=== PATIENT | female | born 1960 | race Caucasian/White ===

== ENCOUNTER 2022-10-31 08:57 | Inpatient (IN) | payer BC ==
[~2022-10-31] VITALS: Ht 167.6 cm; Wt 57.6 kg
[2022-10-31 09:28] VITALS: BP_SYST 193; PULSE 82; RESP 20; TEMP 98.1; O2SAT 98
[2022-10-31 09:47] LABS: BASOPHILS # (AUTO) 0.1 K/uL (0.0-0.2); BASOPHILS % (AUTO) 1.1 % (0.0-2.0); EOSINOPHILS # (AUTO) 0.3 K/uL (0.0-0.4); EOSINOPHILS % (AUTO) 5.6 % (0.0-4.0); HEMATOCRIT 32.3 % (36-48); HEMOGLOBIN 10.6 g/dL (12.0-16.0); LYMPHOCYTES # (AUTO) 0.8 K/uL (1.0-5.5); LYMPHOCYTES % (AUTO) 17.4 % (20.5-51.5); MEAN CORPUSCULAR HEMOGLOBIN 31 pg (27-31); MEAN CORPUSCULAR HGB CONC 33 % (32-36); MEAN CORPUSCULAR VOLUME 96 fL (79.0-98.0); MONOCYTES # (AUTO) 0.2 K/uL (0.0-1.0); NEUTROPHILS # (AUTO) 3.3 K/uL (1.8-7.7); NEUTROPHILS % (AUTO) 71.9 % (40.0-70.0); PLATELET COUNT (AUTO) 122 K/uL (130-430); RED BLOOD CELL COUNT(AUTO) 3.37 MIL/uL (4.2-6.2); RED CELL DISTRIBUTION WIDTH 13.9 % (9.0-15.0); WHITE BLOOD COUNT (AUTO) 4.6 K/uL (4.8-10.8)
[2022-10-31 10:05] LABS: ANION GAP 9 (5-15); CALCIUM 8.8 mg/dL (8.4-11.0); CARBON DIOXIDE 28 mmol/L (23-29); CHLORIDE 102 mmol/L (98-107); CREATININE 6.73 mg/dL (0.55-1.30); GFR AFRICAN AMERICAN 8 mL/min (>90); GLUCOSE 95 mg/dL (74-106); SODIUM SERUM 139 mmol/L (136-145); UREA NITROGEN, BLOOD 47 mg/dL (8-21)
[2022-10-31 10:06] LABS: GFR NON AFRICAN-AMERICAN 7 mL/min (>90)
[2022-10-31 10:12] LABS: ALANINE AMINOTRANSFERASE 23 U/L (12-78); ALBUMIN 3.4 g/dL (3.4-4.8); ASPARTATE AMINOTRANSFERASE 23 U/L (10-37); TOTAL BILIRUBIN 0.5 mg/dL (0.0-1.0); TOTAL PROTEIN, SERUM 6.5 g/dL (6.4-8.3)
[2022-10-31] MEDS ORDERED: FUROSEMIDE 40 MG/4 ML VIAL IVP ONE (10:45)
[2022-10-31] MEDS ORDERED: NITROGLYCERIN 1 INCH (GM) OINT. TP ONE (10:45)
[2022-10-31 14:19] VITALS: BP_SYST 158; PULSE 78; RESP 18; TEMP 97.4
[2022-10-31] MEDS ORDERED: ACETAMINOPHEN 650 MG SUPP.RECT RC PRN (14:45)
[2022-10-31] MEDS ORDERED: ONDANSETRON HCL 4 MG/2 ML VIAL IVP PRN (14:45)
[2022-10-31] MEDS ORDERED: METOCLOPRAMIDE HCL 10 MG/2 ML VIAL IVP PRN (14:45)
[2022-10-31] MEDS ORDERED: cloNIDine HCL 0.1 MG TABLET PO PRN (15:00)
[2022-10-31 15:01] VITALS: O2SAT 94
[2022-10-31] MEDS ORDERED: TEMAZEPAM 15 MG CAPSULE PO PRN (15:30)
[2022-10-31] MEDS ORDERED: traMADol HCL HCL 50 MG TABLET (ULTRAM) PO PRN (15:30)
[2022-10-31 16:45] VITALS: BP_SYST 154; PULSE 83; RESP 18; TEMP 97.8; O2SAT 94
[2022-10-31] MEDS: ACETAMINOPHEN 325 MG TABLET PO PRN (19:05)
[2022-10-31 20:00] VITALS: BP_SYST 161; PULSE 85; RESP 20; TEMP 98; O2SAT 93
[2022-11-01] MEDS: ACETAMINOPHEN 325 MG TABLET PO PRN (00:22)
[2022-11-01 00:34] VITALS: BP_SYST 147; PULSE 80; RESP 14; TEMP 97; O2SAT 95
[2022-11-01 07:19] LABS: BASOPHILS # (AUTO) 0.1 K/uL (0.0-0.2); BASOPHILS % (AUTO) 0.9 % (0.0-2.0); EOSINOPHILS # (AUTO) 0.2 K/uL (0.0-0.4); HEMATOCRIT 28.4 % (36-48); HEMOGLOBIN 9.4 g/dL (12.0-16.0); LYMPHOCYTES # (AUTO) 0.9 K/uL (1.0-5.5); LYMPHOCYTES % (AUTO) 14.7 % (20.5-51.5); MEAN CORPUSCULAR HEMOGLOBIN 32 pg (27-31); MEAN CORPUSCULAR HGB CONC 33 % (32-36); MEAN CORPUSCULAR VOLUME 96 fL (79.0-98.0); MONOCYTES # (AUTO) 0.2 K/uL (0.0-1.0); MONOCYTES % (AUTO) 4.2 % (1.7-9.3); NEUTROPHILS # (AUTO) 4.5 K/uL (1.8-7.7); NEUTROPHILS % (AUTO) 76.2 % (40.0-70.0); PLATELET COUNT (AUTO) 125 K/uL (130-430); RED BLOOD CELL COUNT(AUTO) 2.97 MIL/uL (4.2-6.2); RED CELL DISTRIBUTION WIDTH 13.5 % (9.0-15.0)
[2022-11-01 08:00] VITALS: BP_SYST 155; PULSE 90; RESP 18; TEMP 97.4; O2SAT 95
[2022-11-01 08:09] LABS: ALBUMIN 3.2 g/dL (3.4-4.8); CALCIUM 8.2 mg/dL (8.4-11.0); PHOSPHORUS 4.6 mg/dL (2.7-4.5); POTASSIUM 4.8 mmol/L (3.5-5.1); TOTAL BILIRUBIN 0.4 mg/dL (0.0-1.0); TOTAL PROTEIN, SERUM 5.8 g/dL (6.4-8.3)
[2022-11-01 08:15] LABS: CREATININE 9.23 mg/dL (0.55-1.30)
[2022-11-01 09:56] VITALS: O2SAT 95
[2022-11-01 12:15] VITALS: BP_SYST 157; PULSE 98; RESP 18; TEMP 97.2; O2SAT 95
[2022-11-01] MEDS ORDERED: CARVEDILOL 6.25 MG TABLET (COREG) PO ONE (13:30)
[2022-11-01] MEDS ORDERED: ASPIRIN 81 MG TABLET(ECOTRIN) PO ONE (13:30)
[2022-11-01] MEDS ORDERED: ATORVASTATIN 10 MG TABLET PO ONE (13:30)
[2022-11-01 16:28] VITALS: BP_SYST 134; PULSE 86; RESP 18; TEMP 98.4; O2SAT 95
[2022-11-01 20:00] VITALS: BP_SYST 135; PULSE 80; RESP 16; TEMP 97.9; O2SAT 97
[2022-11-01] MEDS: CARVEDILOL 6.25 MG TABLET (COREG) PO SCH (21:26)
[2022-11-02] VITALS: BP_SYST 130; PULSE 76; RESP 15; TEMP 97.6; O2SAT 97
[2022-11-02 01:38] VITALS: O2SAT 96
[2022-11-02 05:18] LABS: BASOPHILS # (AUTO) 0.1 K/uL (0.0-0.2); BASOPHILS % (AUTO) 1.1 % (0.0-2.0); EOSINOPHILS # (AUTO) 0.3 K/uL (0.0-0.4); EOSINOPHILS % (AUTO) 7.3 % (0.0-4.0); HEMATOCRIT 27.6 % (36-48); HEMOGLOBIN 9.2 g/dL (12.0-16.0); LYMPHOCYTES # (AUTO) 1.5 K/uL (1.0-5.5); LYMPHOCYTES % (AUTO) 32.7 % (20.5-51.5); MEAN CORPUSCULAR HEMOGLOBIN 32 pg (27-31); MEAN CORPUSCULAR HGB CONC 33 % (32-36); MEAN CORPUSCULAR VOLUME 95 fL (79.0-98.0); MONOCYTES # (AUTO) 0.3 K/uL (0.0-1.0); MONOCYTES % (AUTO) 6.2 % (1.7-9.3); NEUTROPHILS # (AUTO) 2.4 K/uL (1.8-7.7); NEUTROPHILS % (AUTO) 52.7 % (40.0-70.0); PLATELET COUNT (AUTO) 123 K/uL (130-430); RED BLOOD CELL COUNT(AUTO) 2.89 MIL/uL (4.2-6.2); RED CELL DISTRIBUTION WIDTH 13.5 % (9.0-15.0); WHITE BLOOD COUNT (AUTO) 4.6 K/uL (4.8-10.8)
[2022-11-02 05:52] LABS: ALBUMIN 2.9 g/dL (3.4-4.8); POTASSIUM 5.3 mmol/L (3.5-5.1); TOTAL BILIRUBIN 0.4 mg/dL (0.0-1.0); TOTAL PROTEIN, SERUM 5.6 g/dL (6.4-8.3)
[2022-11-02 06:18] LABS: CREATININE 11.68 mg/dL (0.55-1.30)
[2022-11-02 07:54] VITALS: BP_SYST 170; PULSE 76; RESP 18; TEMP 96.3; O2SAT 98
[2022-11-02] MEDS ORDERED: ASPIRIN 81 MG TABLET(ECOTRIN) PO SCH (09:00)
[2022-11-02] MEDS ORDERED: ATORVASTATIN 10 MG TABLET PO SCH (09:00)
[2022-11-02] MEDS: CARVEDILOL 6.25 MG TABLET (COREG) PO SCH (09:46)
[2022-11-02 10:08] VITALS: BP_SYST 166; PULSE 83; RESP 18; TEMP 98.3; O2SAT 96
[2022-11-02] MEDS ORDERED: FURO-149 PO (10:24)
[2022-11-02] MEDS ORDERED: SOD250TA2 PO (10:26)
[2022-11-02] MEDS ORDERED: CLON0.1T PO (11:47)
[2022-11-02] MEDS ORDERED: LIP10 PO (11:47)
[2022-11-02] MEDS ORDERED: COR6.25 PO (11:47)
[2022-11-02] MEDS ORDERED: HEPARIN SODIUM,PORCINE 5,000 UNITS/ML VIAL ONE (18:19)
== END 2022-11-02 19:40 | disposition home or self-care (01) | DRG 291 ==
LOC: SED 08:57 → STU 10:27
PROVIDERS: ADMIT Internal Medicine; ATTEND Internal Medicine
PROC: 5A1D70Z Performance of Urinary Filtration, Intermittent, Less than 6 Hours Per Day (ICD-10-PCS; principal; 2022-10-31)
PROC: 5A1D70Z Performance of Urinary Filtration, Intermittent, Less than 6 Hours Per Day (ICD-10-PCS; 2022-11-02)
DX: I13.2 Hypertensive heart and chronic kidney disease with heart failure and with stage 5 chronic kidney disease, or end stage renal disease (principal); I50.41 Acute combined systolic (congestive) and diastolic (congestive) heart failure; N18.6 End stage renal disease; I16.0 Hypertensive urgency; D63.1 Anemia in chronic kidney disease; I49.9 Cardiac arrhythmia, unspecified; Z99.2 Dependence on renal dialysis; Z87.891 Personal history of nicotine dependence; Z79.899 Other long term (current) drug therapy; Z28.310 Unvaccinated for COVID-19
CPT/HCPCS: 36415; 71045; 80053; 80061; 83880; 84100; 84484; 85025; 87081; 90937; 93005; 93306; 99285; G0378; J1644; J1940; J2765; J7030